=== PATIENT | female | born 1980 | race African-American/Black ===

== ENCOUNTER 2017-09-01 18:26 | Emergency (ER) | payer BC, OTHER ==
[~2017-09-01] VITALS: Ht 175.3 cm; Wt 68.0 kg
[2017-09-01] MEDS ORDERED: KETOROLAC 60MG/2ML VIAL IM ONE (21:15)
[2017-09-01] MEDS ORDERED: PREDNISONE 20MG TABLET PO ONE (21:15)
[2017-09-01] MEDS ORDERED: PENICILLIN G BENZATHINE 1,200,000 UNITS/2ML SYR IM ONE (21:15)
[2017-09-01 22:06] VITALS: BP 122/70
== END 2017-09-01 22:06 | disposition home or self-care (01) ==
LOC: ER 19:02
DX: J02.9 Acute pharyngitis, unspecified (principal)
CPT/HCPCS: 81025; 87070; 87430; 96372; 99284; J0561; J1885; J7512; Z7610

== ENCOUNTER 2018-04-28 17:14 | Emergency (ER) | payer BC, OTHER ==
[~2018-04-28] VITALS: Ht 175.3 cm; Wt 66.0 kg
[2018-04-28] MEDS ORDERED: SODIUM CHLORIDE 0.9% 1,000 ML IV ONE (20:43)
[2018-04-28 21:00] VITALS: BP 116/74
[2018-04-28 21:35] LABS: CLARITY URINE CLEAR (CLEAR); COLOR URINE YELLOW (YELLOW); KETONES URINE NEGATIVE (NEGATIVE); LEUKOCYTE ESTERASE URINE NEGATIVE (NEGATIVE); NITRITE URINE NEGATIVE (NEGATIVE); OCCULT BLOOD URINE 1+ (NEGATIVE); PH URINE 6.5 (4.5-8.0); PROTEIN URINE NEGATIVE (NEGATIVE); SPECIFIC GRAVITY URINE 1.009 (1.005-1.030); UROBILINOGEN URINE 0.2 E.U./dL (0.2-1.0)
[2018-04-28 22:02] LABS: *AMPHETAMINES SCREEN URINE NEGATIVE (NEGATIVE); *BARBITURATES SCREEN URINE NEGATIVE (NEGATIVE); *BENZODIAZEPINES SCREEN URINE NEGATIVE (NEGATIVE); *COCAINE SCREEN URINE NEGATIVE (NEGATIVE); METHADONE URINE SCREEN NEGATIVE (NEGATIVE); OPIATES URINE SCREEN NEGATIVE (NEGATIVE)
[2018-04-28 22:03] LABS: CANNABINOID URINE SCREEN NEGATIVE (NEGATIVE); PHENCYCLIDINE URINE SCREEN NEGATIVE (NEGATIVE)
== END 2018-04-28 21:20 | disposition left against medical advice (07) ==
LOC: ER 17:14
DX: O00.90 Unspecified ectopic pregnancy without intrauterine pregnancy (principal); F12.10 Cannabis abuse, uncomplicated; Z3A.00 Weeks of gestation of pregnancy not specified; Z79.899 Other long term (current) drug therapy
CPT/HCPCS: 80305; 81003; 81025; 99284; J7030; 99285

== ENCOUNTER 2019-02-28 06:02 | Emergency (ER) | payer BC, OTHER ==
[~2019-02-28] VITALS: Ht 175.3 cm; Wt 72.0 kg
[2019-02-28 07:48] LABS: CLARITY URINE CLEAR (CLEAR); COLOR URINE YELLOW (YELLOW); KETONES URINE NEGATIVE (NEGATIVE); LEUKOCYTE ESTERASE URINE NEGATIVE (NEGATIVE); NITRITE URINE NEGATIVE (NEGATIVE); OCCULT BLOOD URINE 1+ (NEGATIVE); PH URINE 8.5 (4.5-8.0); PROTEIN URINE NEGATIVE (NEGATIVE); UROBILINOGEN URINE 0.2 E.U./dL (0.2-1.0)
[2019-02-28 08:00] LABS: CHLORIDE 106 mEq/L (98-107); PROTHROMBIN TIME 10.6 sec (9.6-11.0)
[2019-02-28 08:42] LABS: BASOPHILS % 1.3 % (0.0-2.0); EOSINOPHILS % 1.4 % (0.0-5.0); HEMOGLOBIN. 12.2 g/dL (12.0-16.0); LYMPHOCYTES % 22.8 % (20.0-50.0); MEAN CORPUSCULAR HEMOGLOBIN 27.9 pg (28.0-32.0); MEAN CORPUSCULAR VOLUME 84.4 fL (81.0-99.0); MEAN PLATELET VOLUME 8.5 fl (7.4-10.4); MONOCYTES % 11.6 % (2.0-8.0); NEUTROPHILS % 62.9 % (40.0-76.0); PLATELET 209 x1000/uL (130-400); RED BLOOD CELL COUNT 4.38 mill/uL (4.2-5.4); RED CELL DISTRIBUTION WIDTH 14.2 % (11.6-14.6)
[2019-02-28 09:28] VITALS: BP 98/65
== END 2019-02-28 09:31 | disposition home or self-care (01) ==
LOC: ER 06:02
DX: R10.9 Unspecified abdominal pain (principal); R51 Headache; D72.819 Decreased white blood cell count, unspecified; F12.10 Cannabis abuse, uncomplicated; Z98.890 Other specified postprocedural states
CPT/HCPCS: 36415; 81025; 99283